=== PATIENT | male | born 1940 | race Caucasian/White ===

== ENCOUNTER 2017-12-31 13:18 | Inpatient (IN) | payer MEDICARE, BC ==
[~2017-12-31] VITALS: Ht 182.9 cm; Wt 102.1 kg
[2018-02-20] VITALS (10 sets, daily range): BP systolic 94–145; BP diastolic 57–86; PULSE 60–80; TEMP 97–98.7
[2018-02-20] MEDS ORDERED: SYNTHROID0.075 MG/T PO (11:15)
[2018-02-20] MEDS ORDERED: LEVEMIR100 U/ML SQ (11:15)
[2018-02-20] MEDS ORDERED: FORT1000TA PO (11:18)
[2018-02-20] MEDS ORDERED: MULTIPLE VITAMI1 CAP PO (11:18)
[2018-02-20] MEDS ORDERED: K-DUR20 MEQ PO (11:19)
[2018-02-20] MEDS ORDERED: FLOMAX 0.40.4 MG/CAP PO (11:20)
[2018-02-20] MEDS ORDERED: ZOCOR 10MG10 MG PO (11:20)
[2018-02-20] MEDS ORDERED: B-121000 MCG PO (11:22)
[2018-02-20] MEDS ORDERED: WELLBUTRIN XL300 M1 PO (11:23)
[2018-02-20] MEDS ORDERED: COLACE 100100 MG/CAP PO (11:24)
[2018-02-20] MEDS ORDERED: DIABETA 5MG5 MG/TAB (11:25)
[2018-02-20 17:52] LABS: CALCIUM 8.6 mg/dL (8.4-10.2); CREATININE, serum 0.92 mg/dL (0.66-1.25); POTASSIUM 4.3 mmol/L (3.4-5.0)
[2018-02-21 00:18] VITALS: BP 147/78; PULSE 70; TEMP 98.1
[2018-02-21 04:59] VITALS: BP 108/54; PULSE 75; TEMP 98.2
[2018-02-21 07:17] LABS: BASO % 0.7 % (0.0-2.0); EOS # 0.1 (0.0-0.7); EOS % 1.9 % (0-4.0); GRAN # 4.7 (1.4-6.5); GRAN % 81.8 % (42.2-75.2); HEMATOCRIT 40.1 % (42.0-52.0); HEMOGLOBIN 13.3 g/dl (13.5-18.0); LYMPH # 0.4 (1.2-3.4); LYMPH % 6.5 % (20.0-51.0); MEAN CELL VOLUME 93 fl (80.0-100.0); MEAN CORPUSCULAR HEMOGLOBIN 31 pg (27.0-31.0); MEAN CORPUSCULAR HGB CONC 33 g/dl (33.0-37.0); MEAN PLATELET VOLUME 9.3 fl (7.4-10.4); MONO # 0.5 (0.1-0.6); MONO % 8.9 % (1.7-9.3); PLATELET COUNT 133 K/mm3 (130-400); REDCELL DISTRIBUTION WIDTH-CV 13.7 % (11.5-14.5)
[2018-02-21 07:28] LABS: CALCIUM 8.3 mg/dL (8.4-10.2); CREATININE, serum 0.82 mg/dL (0.66-1.25); POTASSIUM 4.2 mmol/L (3.4-5.0)
[2018-02-21 08:25] VITALS: BP 96/59; PULSE 75; TEMP 97.7
[2018-02-21 12:07] VITALS: BP 116/54; PULSE 68; TEMP 98.7
[2018-02-21 16:45] VITALS: BP 114/53; PULSE 81
[2018-02-21 20:19] VITALS: BP 130/67; PULSE 80; TEMP 98
[2018-02-22 01:03] VITALS: BP 119/63; PULSE 75; TEMP 98.9
[2018-02-22 04:22] VITALS: BP 137/66; PULSE 83; TEMP 98.6
[2018-02-22] MEDS ORDERED: ROXICODONE 55 MG/TAB PO (06:41)
[2018-02-22] MEDS ORDERED: NORCO 325 MG-7.1 TAB PO (06:41)
[2018-02-22] MEDS ORDERED: XARELTO10 MG PO (06:45)
[2018-02-22 07:28] VITALS: BP 89/46; PULSE 57; TEMP 98.4
[2018-02-22 08:23] VITALS: BP 122/62
[2018-02-22 12:10] VITALS: BP 127/63; PULSE 89; TEMP 98.9
== END 2018-02-22 14:30 | disposition home or self-care (01) | DRG 470 ==
LOC: JCC 02-20 10:35
PROVIDERS: Orthopaedic Surgery; Physician Assistant
PROC: 0SRC0JA Replacement of Right Knee Joint with Synthetic Substitute, Uncemented, Open Approach (ICD-10-PCS; principal; 2018-02-20 16:30)
DX: M17.11 Unilateral primary osteoarthritis, right knee (principal); E87.1 Hypo-osmolality and hyponatremia; G47.33 Obstructive sleep apnea (adult) (pediatric); Z86.718 Personal history of other venous thrombosis and embolism; Z79.01 Long term (current) use of anticoagulants; E78.5 Hyperlipidemia, unspecified; N40.0 Benign prostatic hyperplasia without lower urinary tract symptoms; E03.9 Hypothyroidism, unspecified; E11.9 Type 2 diabetes mellitus without complications; Z23 Encounter for immunization
CPT/HCPCS: 99222; 99232-AI; A4314; A9284; C1713; C1776; J0690; J1815; J2250; J2704; J3370; J7030

== ENCOUNTER → 2018-02-13 | Outpatient (CLI) | payer MEDICARE, BC ==
[2018-02-13 12:12] LABS: HIV 1/2 Antibodies Non-Reactive; HIV-1p24 Antigen Non-Reactive
== END ==
LOC: COL.LAB 10:41
PROVIDERS: Orthopaedic Surgery
DX: Z01.812 Encounter for preprocedural laboratory examination (principal); M17.11 Unilateral primary osteoarthritis, right knee

== ENCOUNTER 2020-05-10 09:51 | Emergency (ER) | payer MEDICARE, BC ==
[~2020-05-10] VITALS: Ht 180.3 cm; Wt 104.5 kg
[~2020-05-10 09:51] MED LIST: ARICEPT 5MG PO; ASPIRIN E.C. 8181 MG PO; B-121000 MCG PO; CHERATUSSIN AC120 ML PO; COLACE 100100 MG/CAP PO; DIABETA 5MG5 MG/TAB; FLOMAX 0.40.4 MG/CAP PO; FORT1000TA PO; K-DUR20 MEQ PO; LEVEMIR100 U/ML SQ; MULTIPLE VITAMI1 CAP PO; NORCO 325 MG-7.1 TAB PO; OMNICEF 300MG300 MG PO; PROAIR HFA0.09 MG/AC IH; ROXICODONE 55 MG/TAB PO; SYNTHROID0.075 MG/T PO; WELLBUTRIN XL300 M1 PO; XARELTO10 MG PO; ZOCOR 10MG10 MG PO
[2020-05-10 10:01] VITALS: TEMP 97.8
[2020-05-10] MEDS ORDERED: ZOCOR 10MG10 MG PO (11:14)
[2020-05-10] MEDS ORDERED: ZOLOFT 100MG100 MG PO (11:15)
[2020-05-10] MEDS ORDERED: ZOLOFT 25MG25 MG PO (11:15)
[2020-05-10] MEDS ORDERED: ARICEPT10 MG PO (11:16)
[2020-05-10] MEDS ORDERED: SYNTHROID0.175 MG PO (11:16)
[2020-05-10] MEDS ORDERED: LEVEMIR FLEX100 U/ML SQ (11:17)
[2020-05-10] MEDS ORDERED: GLUCOPHAGE1000 MG PO (11:18)
[2020-05-10] MEDS ORDERED: WELLBUTRIN XL150 MG PO (11:18)
[2020-05-10] MEDS ORDERED: ASPIRIN 81M81 MG/TA2 PO (11:19)
[2020-05-10] MEDS ORDERED: K-TAB10 (11:20)
[2020-05-10 11:25] LABS: BASO # 0.1 (0.0-0.2); BASO % 1.3 % (0.0-2.0); EOS # 0.2 (0.0-0.7); EOS % 3.8 % (0-4.0); GRAN # 3.9 (1.4-6.5); GRAN % 71.5 % (42.2-75.2); HEMATOCRIT 41.4 % (42.0-52.0); HEMOGLOBIN 13.8 g/dl (13.5-18.0); LYMPH # 0.7 (1.2-3.4); LYMPH % 12.1 % (20.0-51.0); MEAN CELL VOLUME 93 fl (80.0-100.0); MEAN CORPUSCULAR HEMOGLOBIN 31 pg (27.0-31.0); MEAN CORPUSCULAR HGB CONC 33 g/dl (33.0-37.0); MEAN PLATELET VOLUME 9.4 fl (7.4-10.4); MONO # 0.6 (0.1-0.6); MONO % 10.8 % (1.7-9.3); PLATELET COUNT 214 K/mm3 (130-400); RED BLOOD COUNT 4.45 M/mm3 (4.20-5.60); REDCELL DISTRIBUTION WIDTH-CV 14.1 % (11.5-14.5)
[2020-05-10 11:33] LABS: PROTHROMBIN TIME 11.5 SECONDS (9.7-12.8)
[2020-05-10 11:37] LABS: BILIRUBIN,TOTAL 0.4 mg/dL (0.0-1.0); CALCIUM 9.5 mg/dL (8.4-10.2); CREATININE, serum 1.2 (0.66-1.25); POTASSIUM 4.8 mmol/L (3.4-5.0)
[2020-05-10] MEDS ORDERED: XARELTO15 MG PO (12:41)
[2020-05-10 12:55] VITALS: BP 122/78; PULSE 69
== END 2020-05-10 12:56 | disposition home or self-care (01) ==
LOC: COL.ER 09:51
PROVIDERS: Nurse Practitioner
DX: I82.412 Acute embolism and thrombosis of left femoral vein (principal); E11.9 Type 2 diabetes mellitus without complications; F03.90 Unspecified dementia, unspecified severity, without behavioral disturbance, psychotic disturbance, mood disturbance, and anxiety; E78.5 Hyperlipidemia, unspecified; Z85.810 Personal history of malignant neoplasm of tongue; Z79.4 Long term (current) use of insulin; Z79.82 Long term (current) use of aspirin

== ENCOUNTER 2021-01-15 09:39 | Emergency (ER) | payer MEDICARE, BC ==
[~2021-01-15] VITALS: Ht 180.3 cm; Wt 104.5 kg
[~2021-01-15 09:39] MED LIST changes: +ARICEPT10 MG PO; +ASPIRIN 81M81 MG/TA2 PO; +GLUCOPHAGE1000 MG PO; +K-TAB10; +LEVEMIR FLEX100 U/ML SQ; +SYNTHROID0.175 MG PO; +WELLBUTRIN XL150 MG PO; +XARELTO15 MG PO; +ZOLOFT 100MG100 MG PO; +ZOLOFT 25MG25 MG PO
[2021-01-15 09:40] VITALS: TEMP 98.4
[2021-01-15 10:16] LABS: BASO # 0.1 (0.0-0.2); BASO % 1.5 % (0.0-2.0); EOS # 0.3 (0.0-0.7); EOS % 4.4 % (0-4.0); GRAN # 5.3 (1.4-6.5); GRAN % 77.7 % (42.2-75.2); HEMATOCRIT 38.5 % (42.0-52.0); HEMOGLOBIN 12.8 g/dl (13.5-18.0); LYMPH # 0.4 (1.2-3.4); MEAN CELL VOLUME 91 fl (80.0-100.0); MEAN CORPUSCULAR HEMOGLOBIN 30 pg (27.0-31.0); MEAN CORPUSCULAR HGB CONC 33 g/dl (33.0-37.0); MEAN PLATELET VOLUME 9.7 fl (7.4-10.4); MONO # 0.7 (0.1-0.6); PLATELET COUNT 228 K/mm3 (130-400); RED BLOOD COUNT 4.24 M/mm3 (4.20-5.60); REDCELL DISTRIBUTION WIDTH-CV 13.5 % (11.5-14.5)
[2021-01-15 10:28] LABS: INR 1.1 (0.8-3.0); PROTHROMBIN TIME 12.6 SECONDS (9.7-12.8)
[2021-01-15 10:31] LABS: PARTIAL THROMBOPLASTIN TIME 27.2 SECONDS (26.0-37.0)
[2021-01-15 11:19] LABS: ALBUMIN 3.8 gm/dL (3.5-5.0); BILIRUBIN,TOTAL 0.4 mg/dL (0.0-1.0); CALCIUM 8.9 mg/dL (8.4-10.2); CREATININE, serum 0.88 (0.66-1.25); POTASSIUM 4.4 mmol/L (3.4-5.0); TOTAL PROTEIN 7.4 gm/dL (6.4-8.2)
[2021-01-15] MEDS ORDERED: LASIX 20MG TABL20 MG PO (12:19)
[2021-01-15 13:36] VITALS: BP 121/68; PULSE 69
[2021-01-20] MEDS ORDERED: MAG-OX 400400 MG/TAB PO (19:18)
[2021-01-20] MEDS ORDERED: NAMENDA5 MG PO ×2 (19:23→19:24)
[2021-01-20] MEDS ORDERED: NAMENDA 10MG TA10 MG PO (19:26)
[2021-01-20] MEDS ORDERED: DAILY MULTIPLE1 T18 (19:27)
[2021-01-20] MEDS ORDERED: PRIL40 PO (19:28)
[2021-01-20] MEDS ORDERED: FLOMAX 0.40.4 MG/CAP PO (19:29)
[2021-01-20] MEDS ORDERED: VITAMIN D31000 I1 PO (19:30)
[2021-01-20] MEDS ORDERED: DULCOLAX TAB5 MG PO (19:31)
[2021-01-20] MEDS ORDERED: K-TAB20 PO (19:57)
[2021-01-21] MEDS ORDERED: ZITHROMAX Z PA250 MG PO (11:23)
== END 2021-01-15 13:40 | disposition home or self-care (01) ==
LOC: COL.ER 09:39
PROVIDERS: Family Medicine
DX: I50.9 Heart failure, unspecified (principal); E11.9 Type 2 diabetes mellitus without complications; I11.0 Hypertensive heart disease with heart failure; E78.5 Hyperlipidemia, unspecified; F03.90 Unspecified dementia, unspecified severity, without behavioral disturbance, psychotic disturbance, mood disturbance, and anxiety; Z79.82 Long term (current) use of aspirin; Z79.01 Long term (current) use of anticoagulants; Z79.4 Long term (current) use of insulin
CPT/HCPCS: J0696; J1940; Q9967

== ENCOUNTER 2021-09-14 08:30 | Outpatient (RCR) | payer MEDICARE, BC ==
[~2021-09-14 08:30] MED LIST changes: +DAILY MULTIPLE1 T18; +DULCOLAX TAB5 MG PO; +K-TAB20 PO; +LASIX 20MG TABL20 MG PO; +MAG-OX 400400 MG/TAB PO; +NAMENDA 10MG TA10 MG PO; +NAMENDA5 MG PO; +PRIL40 PO; +VITAMIN D31000 I1 PO; +ZITHROMAX Z PA250 MG PO
== END 2021-09-24 | disposition home or self-care (01) ==
LOC: MKS.ESL.PT
DX: R13.14 Dysphagia, pharyngoesophageal phase (principal); M79.18 Myalgia, other site; K21.9 Gastro-esophageal reflux disease without esophagitis; Z85.810 Personal history of malignant neoplasm of tongue; Z92.3 Personal history of irradiation

== ENCOUNTER → 2021-12-06 13:54 | Outpatient (RCR) | payer MEDICARE, BC | END | disposition home or self-care (01) | LOC: MKS.ESL.PT 09-25 08:15 | DX: R13.10 Dysphagia, unspecified (principal) ==

== ENCOUNTER 2022-07-27 13:32 | Emergency (ER) | payer MEDICARE, BC ==
[~2022-07-27] VITALS: Ht 180.3 cm; Wt 98.6 kg
[2022-07-27 16:10] LABS: BASO # 0.1 K/mm3 (0.0-0.2); BASO % 1.5 % (0.0-2.0); EOS # 0.2 K/mm3 (0.0-0.7); EOS % 3.2 % (0.0-4.0); GRAN # 4.6 K/mm3 (1.4-6.5); GRAN % 77.1 % (42.2-75.2); HEMATOCRIT 41.9 % (42.0-52.0); HEMOGLOBIN 13.5 g/dl (13.5-18.0); LYMPH # 0.5 K/mm3 (1.2-3.4); LYMPH % 8.4 % (20.0-51.0); MEAN CELL VOLUME 88 fl (80.0-100.0); MEAN CORPUSCULAR HEMOGLOBIN 28 pg (27-31); MEAN CORPUSCULAR HGB CONC 32 g/dl (33.0-37.0); MEAN PLATELET VOLUME 9.2 fl (7.4-10.4); MONO # 0.6 K/mm3 (0.1-0.6); MONO % 9.6 % (1.7-9.3); PLATELET COUNT 223 K/mm3 (130-400); RED BLOOD COUNT 4.77 M/mm3 (4.20-5.60); REDCELL DISTRIBUTION WIDTH-CV 14.6 % (11.5-14.5)
[2022-07-27] MEDS ORDERED: MYRBETR50MG PO (16:20)
[2022-07-27 16:27] LABS: ALBUMIN 3.8 gm/dL (3.4-4.8); BILIRUBIN,TOTAL 0.5 mg/dL (0.2-1.2); CREATININE, serum 1.11 mg/dL (0.72-1.25); POTASSIUM 4.6 mmol/L (3.5-4.5); TOTAL PROTEIN 7.4 gm/dL (6.2-8.1)
[2022-07-27 16:31] LABS: INR 1.2 (0.8-3.0); PROTHROMBIN TIME 13.4 SECONDS (9.7-12.8)
[2022-07-27] MEDS ORDERED: SEROQUEL 2525 MG/TAB PO (16:44)
[2022-07-27] MEDS ORDERED: OZEMPIC1 MG/0.71 SQ (16:46)
[2022-07-27] MEDS ORDERED: FLORINEF ACETA0.1 MG PO (16:46)
[2022-07-27] MEDS ORDERED: EXELON4.5 MG PO (16:47)
[2022-07-27 17:41] VITALS: BP 122/77; PULSE 78; TEMP 97.7
== END 2022-07-27 18:04 | disposition short-term general hospital (02) ==
LOC: COL.ER 13:32
PROVIDERS: Nurse Practitioner
DX: S06.5XAA Traumatic subdural hemorrhage with loss of consciousness status unknown, initial encounter (principal); S00.81XA Abrasion of other part of head, initial encounter; S00.31XA Abrasion of nose, initial encounter; S00.511A Abrasion of lip, initial encounter; E11.9 Type 2 diabetes mellitus without complications; W01.198A Fall on same level from slipping, tripping and stumbling with subsequent striking against other object, initial encounter; Y93.01 Activity, walking, marching and hiking
CPT/HCPCS: J1953; J7050